=== PATIENT | female | born 1980 | race Caucasian/White ===

== ENCOUNTER 2017-03-20 07:10 | Day surgery (SDC) | payer OTHER ==
[2017-03-20] MEDS ORDERED: FENTAnyl 50 MCG/ML VIAL (09:43)
[2017-03-20] MEDS ORDERED: MIDAZOLAM 1 MG/ML 2 ML INJ ×2 (09:43)
== END 2017-03-20 09:55 | disposition home or self-care (01) ==
LOC: GIL 07:10
DX: K52.9 Noninfective gastroenteritis and colitis, unspecified (principal); K64.8 Other hemorrhoids
CPT/HCPCS: 45380; 84703; 88305